=== PATIENT | female | born 1970 | race Caucasian/White ===

== ENCOUNTER 2017-12-13 11:30 | Inpatient (IN) | payer OTHER ==
[~2017-12-13] VITALS: Ht 162.6 cm; Wt 68.0 kg
[2017-12-15] MEDS ORDERED: NORVASC5 MG PO (10:15)
[2017-12-15] MEDS ORDERED: TOPROL XL25 M1 PO (10:16)
[2017-12-15] MEDS ORDERED: HIDRALAZINE PO (10:16)
[2017-12-15] MEDS ORDERED: XOPENEX HFA15 GM IH (10:17)
[2017-12-15] MEDS ORDERED: SINGULAIR10 MG PO (10:17)
[2017-12-15] MEDS ORDERED: BREO (10:17)
[2017-12-22] MEDS ORDERED: PERCOCET 5-3251 EACH PO (06:36)
[2017-12-22] MEDS ORDERED: LEVAQUIN500 MG PO (06:36)
[2017-12-22] MEDS ORDERED: LEVSIN/SL0.125 MG PO (06:36)
== END 2017-12-22 07:25 | DRG 742 ==
LOC: OB/GYN 12-20 05:50 → O/R 12-20 05:50 → OB/GYN 12-20 10:30 → EDBD 12-20 10:30 → OB/GYN 12-20 12:16
PROVIDERS: Obstetrics & Gynecology Gynecology; Urology
PROC: 0DNE0ZZ Release Large Intestine, Open Approach (ICD-10-PCS; 2017-12-20)
PROC: 0T788DZ Dilation of Bilateral Ureters with Intraluminal Device, Via Natural or Artificial Opening Endoscopic (ICD-10-PCS; 2017-12-20)
PROC: 0UT60ZZ Resection of Left Fallopian Tube, Open Approach (ICD-10-PCS; principal; 2017-12-20 13:15)
PROC: 0UT10ZZ Resection of Left Ovary, Open Approach (ICD-10-PCS; 2017-12-20 13:15)
DX: N83.02 Follicular cyst of left ovary (principal); N13.39 Other hydronephrosis; K66.0 Peritoneal adhesions (postprocedural) (postinfection)